=== PATIENT | female | born 1965 | race Caucasian/White ===

== ENCOUNTER 2016-10-24 21:00 | Emergency (ER) | payer OTHER ==
[~2016-10-24] VITALS: Ht 162.5 cm; Wt 98.4 kg
[~2016-10-24 21:00] MED LIST: Augmentin Xr 101 TER PO; B12,B-12,B 12500 MC1 PO; BENADRYL50 MG PO; CIPRO500 MG PO; CYMBALTA60 MG PO; DOXYCYCLINE100 MG PO; EC NAPROSYN500 MG PO; FLEXERIL10 MG PO; GLUCOSAMINE SU500 M2 PO; MACROBID100 M1 PO; MEDROL DOSEPAK4 MG PO; MOTRIN600 MG PO; MOTRIN800 MG PO; MUCINEX ER600 MG PO; NATURE'S BLEND F1 MG PO; NKHM; NORCO 10-325 T1 EACH PO; NYSTATIN100000 U/M PO; PEPCID20 MG PO; PREDNISONE10 MG PO; QVAR0.08 MG/AC INH; REXULTI1 MG PO; TRAMADOL HCL50 MG PO; VENTOLIN H0.09 MG/AC INH; VYVANSE40 MG PO; Vicodin 5/500 505 MG PO
[2016-10-24 21:08] VITALS: BP 153/78
[2016-10-24] MEDS ORDERED: KEFLEX500 M1 PO (21:24)
== END 2016-10-24 21:27 | disposition home or self-care (01) ==
LOC: ED 21:00
DX: L03.211 Cellulitis of face (principal); F17.200 Nicotine dependence, unspecified, uncomplicated; G89.29 Other chronic pain; M54.9 Dorsalgia, unspecified; G47.33 Obstructive sleep apnea (adult) (pediatric); J45.909 Unspecified asthma, uncomplicated; Z79.899 Other long term (current) drug therapy; Z88.1 Allergy status to other antibiotic agents; Z98.51 Tubal ligation status; Z90.89 Acquired absence of other organs; Z88.0 Allergy status to penicillin; Z88.2 Allergy status to sulfonamides

== ENCOUNTER 2017-10-03 18:14 | Emergency (ER) | payer SELFPAY ==
[~2017-10-03] VITALS: Wt 102.1 kg
[2017-10-03 18:14] VITALS: BP 119/79
[~2017-10-03 18:14] MED LIST changes: +KEFLEX500 M1 PO
[2017-10-03 19:38] LABS: BILIRUBIN NEGATIVE (NEGATIVE); BLOOD 2+ (NEGATIVE); CLARITY CLEAR (CLEAR); COLOR YELLOW (YELLOW); GLUCOSE NEGATIVE (NEGATIVE); KETONE NEGATIVE (NEGATIVE); LEUKO ESTERASE 1+ (NEGATIVE); NITRITE POSITIVE (NEGATIVE); PH 6.5 (5.0-9.0); SPECIFIC GRAVITY <= 1.005 (1.005-1.030); UROBILINOGEN 0.2 E.U./dl (0.2-1.0)
[2017-10-03 19:49] LABS: BACTERIA 3+
[2017-10-03] MEDS ORDERED: CYCLOBENZAPRINE5 M3 PO (20:11)
[2017-10-03] MEDS ORDERED: Motrin,Rufen800 MG PO (20:11)
[2017-10-03] MEDS ORDERED: MACROBID100 M1 PO (20:11)
== END 2017-10-03 20:15 | disposition home or self-care (01) ==
LOC: ED 18:14
PROVIDERS: Physician Assistant
DX: G89.29 Other chronic pain (principal); M54.5 Low back pain; N39.0 Urinary tract infection, site not specified; R31.9 Hematuria, unspecified; F17.200 Nicotine dependence, unspecified, uncomplicated; Z98.51 Tubal ligation status; Z90.89 Acquired absence of other organs; Z79.899 Other long term (current) drug therapy; Z88.1 Allergy status to other antibiotic agents; Z88.0 Allergy status to penicillin; Z88.2 Allergy status to sulfonamides

== ENCOUNTER 2018-01-18 18:10 | Inpatient (IN) | payer OTHER ==
[~2018-01-18] VITALS: Ht 162.6 cm; Wt 105.4 kg
[~2018-01-18 18:10] MED LIST changes: +CYCLOBENZAPRINE5 M3 PO; +Motrin,Rufen800 MG PO
[2018-01-18 18:13] VITALS: BP 133/72
[2018-01-18 19:38] LABS: BILIRUBIN NEGATIVE (NEGATIVE); BLOOD 2+ (NEGATIVE); CLARITY CLEAR (CLEAR); COLOR YELLOW (YELLOW); GLUCOSE NEGATIVE (NEGATIVE); KETONE NEGATIVE (NEGATIVE); LEUKO ESTERASE NEGATIVE (NEGATIVE); NITRITE NEGATIVE (NEGATIVE); SPECIFIC GRAVITY <= 1.005 (1.005-1.030); UROBILINOGEN 0.2 E.U./dl (0.2-1.0)
[2018-01-18 19:44] LABS: BASO % 0.2 % (0.0-1.0); EOS # 0.2 10*3/uL (0.0-0.4); EOS % 0.8 % (1.0-4.0); HEMATOCRIT 30.9 % (37.0-47.0); HEMOGLOBIN 10.4 g/dl (12.0-16.0); LYMPH # 2.7 10*3/uL (1.3-4.4); LYMPH % 12.4 % (27.0-41.0); MEAN CELL VOLUME 98.7 fl (81.0-99.0); MEAN CORPUSCULAR HGB 33.2 pg (27.0-31.0); MEAN CORPUSCULAR HGB CONC 33.7 g/dl (33.0-37.0); MEAN PLATELET VOLUME 9.7 fl (9.6-12.3); MONO # 1.2 10*3/uL (0.1-1.0); MONO % 5.7 % (3.0-9.0); NEUT # 17.2 10*3/uL (2.3-7.9); NEUT % 80.2 % (47.0-73.0); PLATELET COUNT AUTOMATED 481 10*3/uL (130-400); RED BLOOD COUNT 3.13 10*6/uL (4.10-5.10); RED CELL DISTRI WIDTH 14.6 % (0-14.5); WHITE BLOOD COUNT 21.4 10*3/uL (4.8-10.8)
[2018-01-18 19:44] LABS: BACTERIA 1+; WBC 0-2 wbc/hpf (0-5)
[2018-01-18 19:55] LABS: ACT PARTIAL THROMBO TIME 27.1 SECONDS (20.8-31.5)
[2018-01-18 19:59] LABS: ALBUMIN 3.1 gm/dl (3.1-4.5); ALKALINE PHOSPHATASE 149 U/L (45-117); BUN 5 mg/dl (7-24); CHLORIDE 96 mmol/L (98-107); CREATININE 0.91 mg/dL (0.55-1.02); POTASSIUM 3.4 mmol/L (3.5-5.1); SGOT/AST 11 IU/L (3-35); SGPT/ALT 12 U/L (12-78); SODIUM 128 mmol/L (136-145); TOTAL PROTEIN 7.6 gm/dL (6.4-8.2)
[2018-01-18 20:45] VITALS: BP 134/75
[2018-01-18 22:20] VITALS: BP 143/67
[2018-01-19] VITALS (10 sets, daily range): BP systolic 101–127; BP diastolic 56–74
[2018-01-19 06:19] LABS: BUN 8 mg/dl (7-24); CHLORIDE 100 mmol/L (98-107); CHOLESTEROL 123 mg/dL (<200); CREATININE 1.07 mg/dL (0.55-1.02); HDL CHOLESTEROL 26 mg/dl (40-60); LDL CHOLESTEROL 81 mg/dL (9-159); PHOSPHOROUS 2.9 mg/dL (2.5-4.9); POTASSIUM 4.2 mmol/L (3.5-5.1); SODIUM 132 mmol/L (136-145); TRIGLYCERIDES 79 mg/dl (<150); VLDL CHOLESTEROL 16 mg/dL (6-40)
[2018-01-19 06:25] LABS: HEMATOCRIT 30.5 % (37.0-47.0); HEMOGLOBIN 10.1 g/dl (12.0-16.0); MEAN CELL VOLUME 100.7 fl (81.0-99.0); MEAN CORPUSCULAR HGB 33.3 pg (27.0-31.0); MEAN CORPUSCULAR HGB CONC 33.1 g/dl (33.0-37.0); MEAN PLATELET VOLUME 10.1 fl (9.6-12.3); PLATELET COUNT AUTOMATED 507 10*3/uL (130-400); RED BLOOD COUNT 3.03 10*6/uL (4.10-5.10); RED CELL DISTRI WIDTH 14.7 % (0-14.5); WHITE BLOOD COUNT 14.4 10*3/uL (4.8-10.8)
[2018-01-19 06:54] LABS: PLATELET SUFFICIENCY HIGH (NORMAL); TOTAL CELLS COUNTED 100 #CELLS
[2018-01-19 07:06] LABS: VITAMIN D, 25-HYDROXY 18.9 ng/mL (30-100)
[2018-01-20] VITALS: BP 122/64
[2018-01-20 07:08] LABS: RHEUMATOID ARTHRITIS FACTOR 180.4 IU/mL (0.0-13.9)
[2018-01-20 08:00] VITALS: BP 115/81
[2018-01-20 12:00] VITALS: BP 121/63
[2018-01-20 16:00] VITALS: BP 127/73
[2018-01-20 20:00] VITALS: BP 121/63
[2018-01-20 22:02] LABS: CCP ANTIBODIES IGG/IGA 194 units (0-19)
[2018-01-21 01:11] VITALS: BP 135/67
[2018-01-21 06:32] LABS: BASO % 0.2 % (0.0-1.0); BUN 21 mg/dl (7-24); CHLORIDE 104 mmol/L (98-107); EOS # 0.1 10*3/uL (0.0-0.4); EOS % 0.8 % (1.0-4.0); HEMATOCRIT 27.9 % (37.0-47.0); LYMPH # 3.7 10*3/uL (1.3-4.4); LYMPH % 28.7 % (27.0-41.0); MEAN CELL VOLUME 102.2 fl (81.0-99.0); MEAN CORPUSCULAR HGB CONC 32.3 g/dl (33.0-37.0); MEAN PLATELET VOLUME 9.8 fl (9.6-12.3); MONO # 0.7 10*3/uL (0.1-1.0); MONO % 5.5 % (3.0-9.0); NEUT # 8.3 10*3/uL (2.3-7.9); NEUT % 63.9 % (47.0-73.0); PLATELET COUNT AUTOMATED 548 10*3/uL (130-400); POTASSIUM 4.3 mmol/L (3.5-5.1); RED BLOOD COUNT 2.73 10*6/uL (4.10-5.10); RED CELL DISTRI WIDTH 15.7 % (0-14.5); SODIUM 137 mmol/L (136-145)
[2018-01-21 08:00] VITALS: BP 130/75
[2018-01-21] MEDS ORDERED: DOXYCYCLINE100 M3 PO (11:27)
[2018-01-21] MEDS ORDERED: Vitamin D PO (11:27)
== END 2018-01-21 13:35 | disposition home or self-care (01) | DRG 603 ==
LOC: ED 18:10 → 4E 21:06 → EDHOLD 21:06 → 4E 21:27
PROVIDERS: Internal Medicine; Physician Assistant
PROC: 0H97XZZ Drainage of Abdomen Skin, External Approach (ICD-10-PCS; principal; 2018-01-19)
DX: L03.311 Cellulitis of abdominal wall (principal); E87.1 Hypo-osmolality and hyponatremia; R70.0 Elevated erythrocyte sedimentation rate; D64.9 Anemia, unspecified; E87.8 Other disorders of electrolyte and fluid balance, not elsewhere classified; E87.6 Hypokalemia; R73.9 Hyperglycemia, unspecified; R74.8 Abnormal levels of other serum enzymes; M54.9 Dorsalgia, unspecified; R82.71 Bacteriuria; E66.09 Other obesity due to excess calories; K27.9 Peptic ulcer, site unspecified, unspecified as acute or chronic, without hemorrhage or perforation; D47.3 Essential (hemorrhagic) thrombocythemia; F17.200 Nicotine dependence, unspecified, uncomplicated; F32.9 Major depressive disorder, single episode, unspecified; M51.35 Other intervertebral disc degeneration, thoracolumbar region; G47.33 Obstructive sleep apnea (adult) (pediatric); M06.9 Rheumatoid arthritis, unspecified; L02.211 Cutaneous abscess of abdominal wall; E53.8 Deficiency of other specified B group vitamins; R31.29 Other microscopic hematuria; M15.9 Polyosteoarthritis, unspecified; M54.5 Low back pain; G89.29 Other chronic pain; Z71.6 Tobacco abuse counseling; Z98.890 Other specified postprocedural states; Z99.89 Dependence on other enabling machines and devices; Z78.9 Other specified health status; Z88.1 Allergy status to other antibiotic agents; Z88.0 Allergy status to penicillin; Z88.2 Allergy status to sulfonamides; Z98.51 Tubal ligation status; Z83.6 Family history of other diseases of the respiratory system; Z79.899 Other long term (current) drug therapy; T81.4XXD Infection following a procedure, subsequent encounter

== ENCOUNTER → 2018-01-25 | Outpatient (CLI) | payer OTHER, MEDICAID ==
[~2018-01-25] MED LIST changes: +DOXYCYCLINE100 M3 PO; +Vitamin D PO
== END | disposition home or self-care (01) ==
LOC: WOUNDCARE 10:56
DX: S31.101A Unspecified open wound of abdominal wall, left upper quadrant without penetration into peritoneal cavity, initial encounter (principal); F17.200 Nicotine dependence, unspecified, uncomplicated; X58.XXXA Exposure to other specified factors, initial encounter; Y93.89 Activity, other specified; Y92.89 Other specified places as the place of occurrence of the external cause; Y99.8 Other external cause status

== ENCOUNTER → 2018-02-01 | Outpatient (CLI) | payer OTHER, MEDICAID | END | disposition home or self-care (01) | LOC: WOUNDCARE 02:20 | DX: L02.211 Cutaneous abscess of abdominal wall (principal); F17.200 Nicotine dependence, unspecified, uncomplicated ==

== ENCOUNTER → 2018-02-08 | Outpatient (CLI) | payer OTHER | END | disposition home or self-care (01) | LOC: WOUNDCARE 00:47 | DX: S31.101D Unspecified open wound of abdominal wall, left upper quadrant without penetration into peritoneal cavity, subsequent encounter (principal); L02.211 Cutaneous abscess of abdominal wall; F17.200 Nicotine dependence, unspecified, uncomplicated; X58.XXXD Exposure to other specified factors, subsequent encounter ==

== ENCOUNTER → 2018-02-15 | Outpatient (CLI) | payer OTHER | END | disposition home or self-care (01) | LOC: WOUNDCARE 03:40 | DX: L02.211 Cutaneous abscess of abdominal wall (principal); F17.200 Nicotine dependence, unspecified, uncomplicated ==

== ENCOUNTER → 2018-03-16 | Outpatient (CLI) | payer OTHER ==
[2018-03-16 15:11] LABS: BILIRUBIN NEGATIVE (NEGATIVE); BLOOD 2+ (NEGATIVE); CLARITY SL CLOUDY (CLEAR); COLOR YELLOW (YELLOW); GLUCOSE NEGATIVE (NEGATIVE); KETONE TRACE (NEGATIVE); LEUKO ESTERASE NEGATIVE (NEGATIVE); NITRITE NEGATIVE (NEGATIVE); SPECIFIC GRAVITY >= 1.030 (1.005-1.030); UROBILINOGEN 0.2 E.U./dl (0.2-1.0)
[2018-03-16 15:22] LABS: CREATININE 0.97 mg/dL (0.55-1.02)
[2018-03-16 15:27] LABS: BACTERIA 2+; MUCOUS TRACE; RBC 16-20 rbc/hpf (0-2)
== END | disposition home or self-care (01) ==
LOC: LAB 14:48 → CT 15:00
PROVIDERS: Urology
DX: N39.0 Urinary tract infection, site not specified (principal); R31.9 Hematuria, unspecified

== ENCOUNTER → 2018-03-23 | Outpatient (CLI) | payer OTHER | END | disposition home or self-care (01) | LOC: LAB 10:36 | DX: N39.0 Urinary tract infection, site not specified (principal) ==

== ENCOUNTER → 2018-03-28 | Outpatient (CLI) | payer OTHER ==
[2018-03-28 10:23] LABS: BASO # 0.1 10*3/uL (0.0-0.1); BASO % 0.5 % (0.0-1.0); EOS # 0.4 10*3/uL (0.0-0.4); HEMATOCRIT 37.8 % (37.0-47.0); LYMPH # 2.7 10*3/uL (1.3-4.4); MEAN CELL VOLUME 107.4 fl (81.0-99.0); MEAN CORPUSCULAR HGB 34.1 pg (27.0-31.0); MEAN CORPUSCULAR HGB CONC 31.7 g/dl (33.0-37.0); MEAN PLATELET VOLUME 11.2 fl (9.6-12.3); MONO # 0.8 10*3/uL (0.1-1.0); MONO % 7.7 % (3.0-9.0); NEUT # 5.9 10*3/uL (2.3-7.9); NEUT % 59.6 % (47.0-73.0); PLATELET COUNT AUTOMATED 333 10*3/uL (130-400); RED BLOOD COUNT 3.52 10*6/uL (4.10-5.10); RED CELL DISTRI WIDTH 14.6 % (0-14.5); WHITE BLOOD COUNT 9.8 10*3/uL (4.8-10.8)
[2018-03-29 08:09] LABS: ALPHA-1-ANTITRYPSIN, SERUM 140 mg/dL (90-200)
[2018-03-29 13:04] LABS: ANTI-SMOOTH MUSCLE ANTIBODY 8 Units (0-19)
== END | disposition home or self-care (01) ==
LOC: LAB 09:37
PROVIDERS: Internal Medicine Gastroenterology
DX: D64.9 Anemia, unspecified (principal); R74.8 Abnormal levels of other serum enzymes

== ENCOUNTER → 2018-06-14 | Outpatient (CLI) | payer OTHER | END | disposition home or self-care (01) | LOC: WOUNDCARE 02:24 | DX: S31.100A Unspecified open wound of abdominal wall, right upper quadrant without penetration into peritoneal cavity, initial encounter (principal); L03.311 Cellulitis of abdominal wall; E66.9 Obesity, unspecified; K21.9 Gastro-esophageal reflux disease without esophagitis; M19.90 Unspecified osteoarthritis, unspecified site; G89.29 Other chronic pain; F17.200 Nicotine dependence, unspecified, uncomplicated; F98.8 Other specified behavioral and emotional disorders with onset usually occurring in childhood and adolescence; X58.XXXA Exposure to other specified factors, initial encounter; Y93.89 Activity, other specified; Y92.89 Other specified places as the place of occurrence of the external cause; Y99.8 Other external cause status ==

== ENCOUNTER → 2018-06-28 | Outpatient (CLI) | payer OTHER | END | disposition home or self-care (01) | LOC: WOUNDCARE 04:25 | DX: S31.100D Unspecified open wound of abdominal wall, right upper quadrant without penetration into peritoneal cavity, subsequent encounter (principal); L03.311 Cellulitis of abdominal wall; F98.8 Other specified behavioral and emotional disorders with onset usually occurring in childhood and adolescence; F17.200 Nicotine dependence, unspecified, uncomplicated; X58.XXXD Exposure to other specified factors, subsequent encounter ==

== ENCOUNTER → 2018-12-14 | Outpatient (CLI) | payer BC, OTHER | END | disposition home or self-care (01) | LOC: RAD 12:00 | DX: T85.698A Other mechanical complication of other specified internal prosthetic devices, implants and grafts, initial encounter (principal); M51.36 Other intervertebral disc degeneration, lumbar region ==

== ENCOUNTER → 2020-07-26 | Outpatient (CLI) | payer OTHER | END | disposition home or self-care (01) | LOC: LAB 09:50 → CT 10:00 | PROVIDERS: ATTEND Urology | DX: N26.1 Atrophy of kidney (terminal) (principal); R91.1 Solitary pulmonary nodule; R31.9 Hematuria, unspecified ==

== ENCOUNTER → 2021-05-07 | Outpatient (CLI) | payer BC | END | disposition home or self-care (01) | LOC: RAD 16:58 | PROVIDERS: ATTEND Urology | DX: M53.3 Sacrococcygeal disorders, not elsewhere classified (principal); M48.08 Spinal stenosis, sacral and sacrococcygeal region; Z96.82 Presence of neurostimulator ==

== ENCOUNTER → 2022-06-03 | Outpatient (CLI) | payer OTHER | END | disposition home or self-care (01) | LOC: RAD 11:55 | PROVIDERS: ATTEND Urology | DX: M47.816 Spondylosis without myelopathy or radiculopathy, lumbar region (principal); Z96.82 Presence of neurostimulator ==

== ENCOUNTER → 2022-06-25 | Outpatient (CLI) | payer OTHER ==
[2022-06-25 14:45] LABS: ACT PARTIAL THROMBO TIME 27.5 SECONDS (20.0-32.1)
== END | disposition home or self-care (01) ==
LOC: LAB 14:05
PROVIDERS: ATTEND Urology
DX: Z01.812 Encounter for preprocedural laboratory examination (principal); R32 Unspecified urinary incontinence

== ENCOUNTER → 2023-01-29 | Outpatient (CLI) | payer OTHER | END | disposition home or self-care (01) | LOC: US 14:00 | PROVIDERS: ATTEND Urology | DX: R32 Unspecified urinary incontinence (principal); N81.10 Cystocele, unspecified ==

== ENCOUNTER → 2023-02-16 | Outpatient (CLI) | payer OTHER ==
[2023-02-16 12:06] LABS: BASO # 0.1 10*3/uL (0.0-0.1); BASO % 0.7 % (0.0-1.0); EOS # 0.3 10*3/uL (0.0-0.4); EOS % 2.9 % (1.0-4.0); HEMATOCRIT 36.9 % (37.0-47.0); LYMPH # 2.4 10*3/uL (1.3-4.4); LYMPH % 27.3 % (27.0-41.0); MEAN CELL VOLUME 98.9 fl (81.0-99.0); MEAN CORPUSCULAR HGB 32.4 pg (27.0-31.0); MEAN CORPUSCULAR HGB CONC 32.8 g/dl (33.0-37.0); MEAN PLATELET VOLUME 9.8 fl (9.6-12.3); MONO # 0.7 10*3/uL (0.1-1.0); MONO % 7.6 % (3.0-9.0); NEUT # 5.3 10*3/uL (2.3-7.9); NEUT % 61.2 % (47.0-73.0); PLATELET COUNT AUTOMATED 402 10*3/uL (130-400); RED BLOOD COUNT 3.73 10*6/uL (4.10-5.10); RED CELL DISTRI WIDTH 14.2 % (0-14.5); WHITE BLOOD COUNT 8.6 10*3/uL (4.8-10.8)
[2023-02-16 12:15] LABS: ACT PARTIAL THROMBO TIME 28.5 SECONDS (20.0-32.1)
[2023-02-16 12:35] LABS: ALKALINE PHOSPHATASE 102 U/L (46-116); BUN 9 mg/dl (9-23); CHLORIDE 105 mmol/L (98-107); POTASSIUM 4.1 mmol/L (3.4-5.1); SGPT/ALT 13 U/L (5-49)
== END | disposition home or self-care (01) ==
LOC: LAB 11:28
PROVIDERS: ATTEND Urology
DX: Z01.818 Encounter for other preprocedural examination (principal)

== ENCOUNTER → 2024-07-06 | Outpatient (CLI) | payer OTHER | END | disposition home or self-care (01) | LOC: RAD 10:27 | PROVIDERS: ATTEND Urology | DX: Z96.82 Presence of neurostimulator (principal) ==